=== PATIENT | female | born 1955 | race Caucasian/White ===

== ENCOUNTER 2017-03-26 08:54 | Outpatient (CLI) | payer MEDICARE, BC | END 2017-03-26 11:17 | LOC: D.MAMMO 08:54 | DX: N64.4 Mastodynia (principal) ==

== ENCOUNTER 2017-04-10 09:00 | Outpatient (CLI) | payer MEDICARE, OTHER | END 2017-04-10 23:59 | disposition home or self-care (01) | LOC: D.US 09:00 | DX: R92.8 Other abnormal and inconclusive findings on diagnostic imaging of breast (principal) ==

== ENCOUNTER → 2018-02-14 11:09 | Outpatient (CLI) | payer OTHER | END | disposition home or self-care (01) | LOC: D.MRI 11:09 | DX: M54.16 Radiculopathy, lumbar region (principal) ==

== ENCOUNTER → 2018-07-10 12:32 | Outpatient (CLI) | payer OTHER | END | disposition home or self-care (01) | LOC: D.RAD 11:00 | DX: K22.8 Other specified diseases of esophagus (principal); K21.9 Gastro-esophageal reflux disease without esophagitis ==

== ENCOUNTER → 2018-07-15 08:54 | Outpatient (CLI) | payer OTHER | END | disposition home or self-care (01) | LOC: D.MRI 08:54 | DX: M25.512 Pain in left shoulder (principal) ==